=== PATIENT | female | born 1955 | race Caucasian/White ===

== ENCOUNTER → 2017-04-09 | Emergency (ER) | payer MEDICARE, OTHER ==
[~2017-04-09] VITALS: Ht 165.1 cm; Wt 96.1 kg
[2017-04-09 13:46] VITALS: BP 116/81
== END | disposition home or self-care (01) ==
LOC: ER 13:35
DX: Z02.89 Encounter for other administrative examinations (principal); I25.10 Atherosclerotic heart disease of native coronary artery without angina pectoris; I10 Essential (primary) hypertension; G89.29 Other chronic pain; Z88.0 Allergy status to penicillin; Z88.1 Allergy status to other antibiotic agents; Z88.8 Allergy status to other drugs, medicaments and biological substances
CPT/HCPCS: 99281

== ENCOUNTER 2019-01-01 17:57 | Emergency (ER) | payer MEDICARE ==
[~2019-01-01] VITALS: Ht 165.1 cm; Wt 100.0 kg
[2019-01-01 18:12] VITALS: BP 130/89
== END 2019-01-01 21:53 | disposition left against medical advice (07) ==
LOC: ER 17:58
DX: R11.10 Vomiting, unspecified (principal); R19.7 Diarrhea, unspecified; Z53.21 Procedure and treatment not carried out due to patient leaving prior to being seen by health care provider

== ENCOUNTER 2019-03-03 11:04 | Inpatient (IN) | payer MEDICARE, OTHER ==
[~2019-03-03] VITALS: Ht 165.1 cm; Wt 97.0 kg
[2019-03-03] MEDS ORDERED: LORazepam 2 mg/ml vial IV ONE (11:40)
[2019-03-03] MEDS ORDERED: magnesium 2GM in 50ml NS 50 ML IV ONE (11:40)
[2019-03-03] MEDS ORDERED: normal saline 1000ML IV soln IVB ONE (11:40)
[2019-03-03] MEDS ORDERED: potassium Cl 20 mEq SR tablet PO STA (11:40)
--- NOTE | 2019-03-03 12:47 | NUR ---
PT TO CT VIA [facility].
[2019-03-03 12:50] LABS: BASOPHILS # (AUTO) 0.1 X10'3 (0-0.2); BASOPHILS % (AUTO) 0.5 % (0-1); EOSINOPHILS % (AUTO) 0.3 % (0-6); HEMOGLOBIN 14.8 g/dl (12.0-16.0); LYMPHOCYTES # (AUTO) 1.6 X10'3 (1.1-4.8); MEAN CORPUSCULAR HEMOGLOBIN 31.7 PG (27.0-31.0); MEAN CORPUSCULAR HGB CONC 34.5 g/dL (33.0-36.5); MEAN CORPUSCULAR VOLUME 91.8 FL (78-98); MEAN PLATELET VOLUME 7.8 FL (7.4-10.4); MONOCYTES # (AUTO) 0.7 X10'3 (0-0.9); NEUTROPHILS # (AUTO) 11.1 X10'3 (1.8-7.7); NEUTROPHILS % (AUTO) 82.2 % (42-75); PLATELET COUNT 316 X10'3 (140-440); RED BLOOD COUNT 4.68 X10'6 (4.20-5.60); RED CELL DISTRIBUTION WIDTH 14.3 % (11.5-14.5); WHITE BLOOD COUNT 13.5 X10'3 (4.5-11.0)
[2019-03-03 13:07] LABS: ALANINE AMINOTRANSFERASE 20 U/L (12-78); ALKALINE PHOSPHATASE 81 IU/L (46-116); ANION GAP 8 (8-16); ASPARTATE AMINO TRANSFERASE 20 U/L (10-37); BILIRUBIN,TOTAL 0.9 MG/DL (0.1-1.0); BLOOD UREA NITROGEN 13 MG/DL (7-18); BUN/CREATININE RATIO 12.4 (6.6-38.0); CALCIUM 9.1 MG/DL (8.5-10.1); CHLORIDE 94 MMOL/L (99-107); CREATININE 1.05 MG/DL (0.40-0.90); GLUCOSE 117 MG/DL (70-104); POTASSIUM 3.4 MMOL/L (3.5-5.1); SODIUM 133 MMOL/L (135-145); TOTAL CARBON DIOXIDE 30.7 MMOL/L (24-32); TOTAL PROTEIN 7.9 G/DL (6.4-8.2); eGFR 53 ML/MIN
[2019-03-03 13:10] LABS: ETHANOL < 0.010 GM/DL (0.0-0.010); TROPONIN I < 0.04 NG/ML (0.0-0.05)
[2019-03-03] MEDS ORDERED: normal saline 1000ml 1,000 ML IV ONE (13:40)
[2019-03-03] MEDS ORDERED: folic acid 1mg/0.2ml inj IV ONE (13:40)
[2019-03-03] MEDS ORDERED: thiamine 100mg/ml 2ml inj. IV ONE (13:40)
[2019-03-03] MEDS ORDERED: potassium CL 10mEq/100ml bag 100 ML IV PRN ×2 (13:55)
[2019-03-03] MEDS ORDERED: thiamine inj. 100 MG in normal saline 100ml IV soln 100 ML IV ONE (13:55)
[2019-03-03] MEDS ORDERED: NORMAL SALINE IV SCH (13:55)
[2019-03-03] MEDS ORDERED: haloperidol lactate 5mg/ml inj IM PRN (13:55)
[2019-03-03] MEDS ORDERED: mag hydrox/Alum hydrox/simeth 30ml oral suspension PO PRN (13:55)
[2019-03-03] MEDS ORDERED: FOLIC ACID IV SCH (13:55)
[2019-03-03] MEDS ORDERED: magnesium 2GM in 50ml NS 50 ML IV PRN (13:55)
[2019-03-03] MEDS ORDERED: magnesium Cl slow-release 64mg tablet PO PRN (13:55)
[2019-03-03] MEDS ORDERED: acetaminophen 325mg tablet PO PRN ×2 (13:55)
[2019-03-03] MEDS ORDERED: potassium Cl 20 mEq SR tablet PO PRN ×2 (13:55)
[2019-03-03] MEDS ORDERED: magnesium 4gm in 100ml NS 100 ML IV PRN (13:55)
[2019-03-03] MEDS ORDERED: haloperidol 5mg tablet PO PRN (13:55)
[2019-03-03] MEDS ORDERED: magnesium hydroxide 30ml (MOM) UD suspension PO PRN (13:55)
[2019-03-03] MEDS ORDERED: morphine 2 MG/ML inj. syringe IV PRN (13:55)
[2019-03-03] MEDS ORDERED: THIAMINE IV SCH (13:55)
[2019-03-03] MEDS ORDERED: ondansetron/PF 4mg/2ml inj IV PRN (13:55)
[2019-03-03 14:02] LABS: CLARITY,URINE CLEAR (Clear); COLOR,URINE YELLOW (Yellow); GLUCOSE, URINE NEGATIVE (Neg); KETONES,URINE 15 mg/dl (Neg); LEUKOCYTE ESTERASE ,URINE NEGATIVE (Neg); NITRITES, URINE NEGATIVE (Neg); OCCULT BLOOD,URINE TRACE-LYSED (Neg); PH,URINE 6.5 (4.8-8.0); PROTEIN,URINE NEGATIVE (Neg); UROBILINOGEN,URINE 0.2 E.U/dL (0.2-1.0)
[2019-03-03 14:04] LABS: UA COLLECTION TYPE NON-SPECIFIED
[2019-03-03 14:07] LABS: SQUAMOUS EPITHELIAL CELL,UR MODERATE /LPF (FEW)
[2019-03-03 14:08] LABS: BACTERIA,URINE 4+ /HPF (Neg); RBC,URINE 0-2 /HPF (0-2); WBC,URINE 0-4 /HPF (0-4)
[2019-03-03 14:09] LABS: WBC CLUMPS,URINE FEW /HPF (NEGATIVE)
[2019-03-03 14:15] LABS: URINE AMPHETAMINE SCREEN NEGATIVE (Neg); URINE BARBITUATE SCREEN NEGATIVE (Neg); URINE BENZODIAZEPINES SCREEN NEGATIVE (Neg); URINE CANNABINOID SCREEN NEGATIVE (Neg); URINE COCAINE SCREEN NEGATIVE (Neg); URINE METHADONE SCREEN NEGATIVE (Neg); URINE OPIATE SCREEN POSITIVE (Neg); URINE PHENCYCLIDINE SCREEN NEGATIVE (Neg)
[2019-03-03] MEDS ORDERED: thiamine inj. 100 MG, folic acid inj. 2 MG in normal saline 100ml IV soln 100 ML IV SCH (14:16)
[2019-03-03] MEDS ORDERED: METF-438 PO (14:46)
[2019-03-03] MEDS ORDERED: DULO30CA52 PO (14:46)
[2019-03-03] MEDS ORDERED: ONDA8TAB13 PO (14:46)
[2019-03-03] MEDS ORDERED: FURO20TA4 PO (14:46)
[2019-03-03] MEDS ORDERED: CLON0.1T2 PO (14:47)
[2019-03-03] MEDS: MVI, adult No.4 with vit. K 10 ML in dextrose 5% water 500ml 500 ML IV SCH ×2 (14:50)
[2019-03-03] MEDS ORDERED: MESSAGE TO PHARMACY PO ONE (17:05)
[2019-03-03] MEDS ORDERED: dextrose 50%-water 50ml dispensing syringe IV PRN ×2 (17:05)
[2019-03-03] MEDS ORDERED: dextrose ORAL solution 15 GM/59 ML bottle PO PRN ×2 (17:05)
[2019-03-03] MEDS ORDERED: insulin Lispro (HumaLOG) vial - multi-dose SQ SCH (17:05)
[2019-03-03] MEDS ORDERED: glucagon, human recombinant 1mg kit SUBCUT PRN (17:05)
[2019-03-03] MEDS: ondansetron 4mg rapidly disintigrating tab PO SCH ×2 (17:55→23:33)
[2019-03-03 18:00] VITALS: BP 145/79
--- NOTE | 2019-03-03 18:24 | NUR ---
Problems reprioritized. Patient report given, questions answered & plan of care reviewed with LINDA Brice.
--- NOTE | 2019-03-03 19:03 | NUR ---
Patient in room [facility]. I have received report from LINDA Guan and had the opportunity to ask questions and assume patient care. Addendum: 03/03/19 at 1904 by Bella Jackson RN Amended: Links added.
[2019-03-03] MEDS: nystatin 500,000 unit/5ML UD oral suspension PO SCH (20:07)
[2019-03-03] MEDS: morphine 2 MG/ML inj. syringe IV PRN (20:08)
[2019-03-03] MEDS: insulin glargine (Lantus) pen - multi-dose SQ SCH (21:00)
[2019-03-03] MEDS: LORazepam 2 mg/ml vial IV PRN (22:18)
[2019-03-04] VITALS: BP 147/67
[2019-03-04] MEDS: morphine 2 MG/ML inj. syringe IV PRN ×2 (00:20→07:21)
[2019-03-04] MEDS: LORazepam 2 mg/ml vial IV PRN ×2 (02:14→05:14)
[2019-03-04] MEDS: HYDROcodone/acetaminophen 5mg/325mg tablet PO PRN ×2 (02:52→14:01)
[2019-03-04 05:04] LABS: BASOPHILS % (AUTO) 0.2 % (0-1); EOSINOPHILS % (AUTO) 0.5 % (0-6); HEMATOCRIT 37.8 % (35.0-45.0); HEMOGLOBIN 12.8 g/dl (12.0-16.0); LYMPHOCYTES # (AUTO) 1.4 X10'3 (1.1-4.8); LYMPHOCYTES % (AUTO) 14.4 % (21-51); MEAN CORPUSCULAR HEMOGLOBIN 31.7 PG (27.0-31.0); MEAN CORPUSCULAR HGB CONC 33.9 g/dL (33.0-36.5); MEAN CORPUSCULAR VOLUME 93.6 FL (78-98); MEAN PLATELET VOLUME 8.3 FL (7.4-10.4); MONOCYTES # (AUTO) 0.5 X10'3 (0-0.9); MONOCYTES % (AUTO) 5.4 % (2-12); NEUTROPHILS # (AUTO) 7.4 X10'3 (1.8-7.7); NEUTROPHILS % (AUTO) 79.5 % (42-75); PLATELET COUNT 253 X10'3 (140-440); RED BLOOD COUNT 4.04 X10'6 (4.20-5.60); RED CELL DISTRIBUTION WIDTH 14.4 % (11.5-14.5); WHITE BLOOD COUNT 9.4 X10'3 (4.5-11.0)
[2019-03-04 05:15] LABS: ALBUMIN 2.8 G/DL (3.4-5.0); ANION GAP 6 (8-16); BLOOD UREA NITROGEN 11 MG/DL (7-18); BUN/CREATININE RATIO 8.3 (6.6-38.0); CALCIUM 8.3 MG/DL (8.5-10.1); CHLORIDE 105 MMOL/L (99-107); CREATININE 1.32 MG/DL (0.40-0.90); GLUCOSE 130 MG/DL (70-104); MAGNESIUM 2.4 MG/DL (1.5-2.4); PHOSPHORUS 3.2 MG/DL (2.3-4.5); POTASSIUM 3.7 MMOL/L (3.5-5.1); SODIUM 139 MMOL/L (135-145); TOTAL CARBON DIOXIDE 28.1 MMOL/L (24-32); eGFR 41 ML/MIN
--- NOTE | 2019-03-04 06:30 | NUR ---
Patient in room [facility] 356. I have received report from Bella MCKEON and had the opportunity to ask questions and assume patient care.
[2019-03-04] MEDS: furosemide 20MG tablet PO SCH (07:22)
[2019-03-04] MEDS: duloxetine 30mg CAPSULE.DR PO SCH (07:22)
[2019-03-04] MEDS: ondansetron 4mg rapidly disintigrating tab PO SCH ×3 (07:23→23:26)
[2019-03-04 07:33] VITALS: BP 150/87
[2019-03-04] MEDS ORDERED: thiamine inj. 100 MG, folic acid inj. 2 MG in normal saline 100ml IV soln 100 ML IV SCH (08:00)
[2019-03-04] MEDS: K and/or MAG REPLACEMENT MC SCH (08:00)
[2019-03-04] MEDS ORDERED: enoxaparin 40mg/0.4ml syringe SQ SCH (08:00)
[2019-03-04] MEDS: nystatin 500,000 unit/5ML UD oral suspension PO SCH ×3 (08:05→21:00)
[2019-03-04 11:00] VITALS: BP 143/88
[2019-03-04] MEDS: LORazepam 1 MG tablet PO PRN ×2 (13:38→20:59)
[2019-03-04] MEDS: MVI, adult No.4 with vit. K 10 ML in dextrose 5% water 500ml 500 ML IV SCH ×2 (14:02)
--- NOTE | 2019-03-04 16:07 | NUR ---
Spoke with Copper Miner and patient packet is submitted to notify proper agencies about the patient having a seizure.
[2019-03-04 18:15] VITALS: BP 158/97
--- NOTE | 2019-03-04 18:34 | NUR ---
Problems reprioritized. Patient report given, questions answered & plan of care reviewed with Tatiana MCKEON.
[2019-03-04] MEDS: insulin glargine (Lantus) pen - multi-dose SQ SCH (21:00)
[2019-03-04] MEDS: cloNIDine 0.1 mg tablet PO PRN (23:27)
[2019-03-05 00:15] VITALS: BP 158/79
[2019-03-05 04:57] LABS: BASOPHILS # (AUTO) 0.1 X10'3 (0-0.2); BASOPHILS % (AUTO) 0.8 % (0-1); EOSINOPHILS # (AUTO) 0.2 X10'3 (0-0.9); EOSINOPHILS % (AUTO) 2.7 % (0-6); HEMATOCRIT 34.5 % (35.0-45.0); LYMPHOCYTES # (AUTO) 2.2 X10'3 (1.1-4.8); MEAN CORPUSCULAR HEMOGLOBIN 32.2 PG (27.0-31.0); MEAN CORPUSCULAR HGB CONC 34.7 g/dL (33.0-36.5); MEAN CORPUSCULAR VOLUME 92.8 FL (78-98); MEAN PLATELET VOLUME 8.4 FL (7.4-10.4); MONOCYTES # (AUTO) 0.6 X10'3 (0-0.9); NEUTROPHILS # (AUTO) 4.2 X10'3 (1.8-7.7); NEUTROPHILS % (AUTO) 58.5 % (42-75); PLATELET COUNT 248 X10'3 (140-440); RED BLOOD COUNT 3.72 X10'6 (4.20-5.60); RED CELL DISTRIBUTION WIDTH 14.4 % (11.5-14.5); WHITE BLOOD COUNT 7.2 X10'3 (4.5-11.0)
[2019-03-05 05:16] LABS: ALBUMIN 2.8 G/DL (3.4-5.0); ANION GAP 7 (8-16); CALCIUM 8.4 MG/DL (8.5-10.1); CHLORIDE 104 MMOL/L (99-107); CREATININE 0.98 MG/DL (0.40-0.90); GLUCOSE 112 MG/DL (70-104); MAGNESIUM 2.1 MG/DL (1.5-2.4); PHOSPHORUS 3.8 MG/DL (2.3-4.5); POTASSIUM 3.6 MMOL/L (3.5-5.1); SODIUM 141 MMOL/L (135-145); TOTAL CARBON DIOXIDE 30.4 MMOL/L (24-32); eGFR 58 ML/MIN
[2019-03-05 05:18] LABS: BLOOD UREA NITROGEN 10 MG/DL (7-18); BUN/CREATININE RATIO 10.2 (6.6-38.0)
[2019-03-05 06:30] VITALS: BP 160/85
--- NOTE | 2019-03-05 06:43 | NUR ---
Problems reprioritized. Patient report given, questions answered & plan of care reviewed with LINDA Barroso.
--- NOTE | 2019-03-05 06:45 | NUR ---
Patient in room [facility] 356. I have received report from LINDA Simpson and had the opportunity to ask questions and assume patient care.
[2019-03-05] MEDS: K and/or MAG REPLACEMENT MC SCH (07:16)
[2019-03-05] MEDS: ondansetron 4mg rapidly disintigrating tab PO SCH (07:41)
[2019-03-05] MEDS: nystatin 500,000 unit/5ML UD oral suspension PO SCH ×2 (07:41→13:27)
[2019-03-05] MEDS: duloxetine 30mg CAPSULE.DR PO SCH (07:43)
[2019-03-05] MEDS: furosemide 20MG tablet PO SCH (07:43)
[2019-03-05] MEDS ORDERED: folic acid 1mg tablet PO SCH (08:00)
[2019-03-05] MEDS ORDERED: multivitamins, therapeutics tablet PO SCH (08:00)
[2019-03-05] MEDS ORDERED: thiamine 100mg tablet PO SCH (08:00)
[2019-03-05] MEDS: cloNIDine 0.1 mg tablet PO PRN (09:03)
[2019-03-05] MEDS ORDERED: metoprolol tartrate 50mg tablet PO ONE (10:45)
[2019-03-05] MEDS: HYDROcodone/acetaminophen 5mg/325mg tablet PO PRN (10:52)
[2019-03-05 11:00] VITALS: BP 166/100
[2019-03-05] MEDS ORDERED: ATI1T PO (12:42)
[2019-03-05] MEDS ORDERED: NYST1000 PO (13:47)
--- NOTE | 2019-03-05 13:50 | NUR ---
DC inst provided to pt. IV previously DC'd. All belongings sent w/pt. Pt ambulated to front [facility].
== END 2019-03-05 13:53 | disposition home or self-care (01) | DRG 100 ==
LOC: ER 11:04 → ED HOLD 13:40 → SUR 3N 16:59
PROVIDERS: ADMIT Hospitalist; ATTEND Hospitalist
DX: G40.89 Other seizures (principal); N17.0 Acute kidney failure with tubular necrosis; F10.231 Alcohol dependence with withdrawal delirium; E87.6 Hypokalemia; Z88.1 Allergy status to other antibiotic agents; Z88.0 Allergy status to penicillin; Z88.8 Allergy status to other drugs, medicaments and biological substances; I25.10 Atherosclerotic heart disease of native coronary artery without angina pectoris; I10 Essential (primary) hypertension; G89.29 Other chronic pain; M54.9 Dorsalgia, unspecified; E11.9 Type 2 diabetes mellitus without complications; F41.9 Anxiety disorder, unspecified
CPT/HCPCS: 36415; 70450; 76937; 80048; 80053; 80305; 80320; 81001; 82140; 82948; 83036; 83735; 84100; 84484; 85025; 85610; 87077; 87081; 87088; 87186; 93005; 96374; 99291; G0378; J1650; J1815; J2060; J2270; J3411; J3475; J3490; J7030; J7060

== ENCOUNTER 2019-03-25 15:09 | Outpatient (CLI) | payer MEDICARE, OTHER ==
[~2019-03-25 15:09] MED LIST: ATI1T PO; CLON0.1T2 PO; DULO30CA52 PO; FURO20TA4 PO; METF-438 PO; ONDA8TAB13 PO
== END 2019-03-25 23:59 | disposition home or self-care (01) ==
LOC: RAD 15:09
PROVIDERS: ATTEND Family Medicine
DX: M16.0 Bilateral primary osteoarthritis of hip (principal)
CPT/HCPCS: 73503

== ENCOUNTER 2019-07-03 01:41 | Emergency (ER) | payer MEDICARE, OTHER ==
[~2019-07-03] VITALS: Ht 165.1 cm; Wt 88.2 kg
[~2019-07-03 01:41] MED LIST changes: +CLON-529 PO; +DULO-31 PO; +FURO-150 PO; +LOSA100T57 PO; +METF500T PO; +METO-411 PO; +MULT-1179 PO; +ONDA4TAB6 PO; +PANT40TA4 PO; +QUET25TA34 PO; +folic acid tablet PO; +thiamine tablet PO
--- NOTE | 2019-07-03 01:55 | NUR ---
Pt. placed in room two by and CRN. Able to ambulate independenty accompanied by tech. Mask in place per rr safety precautions.
--- NOTE | 2019-07-03 02:11 | NUR ---
DR PRINGLE AT BEDSIDE. SHE REPORTS SHE WAS JUST DISCHARGED FROM [facility]. SHE REPORTS NAUSEA, VOMITING, DIARRHEA, SORE THROAT AND GARVEY. SHE STATES SHE IS VERY DIFFICULT IV PLACEMENT AND LAB DRAW AND THAT SHE HAD A PICC LINE WHEN SHE WAS HERE. DISCHARGEED JUST YESTERDAY.
[2019-07-03] MEDS ORDERED: LORazepam 2 mg/ml vial IM ONE (02:15)
[2019-07-03] MEDS ORDERED: haloperidol lactate 5mg/ml inj IM ONE (02:15)
[2019-07-03] MEDS ORDERED: ondansetron 4mg rapidly disintigrating tab PO ONE (02:15)
[2019-07-03] MEDS ORDERED: PROM25TA14 PO (02:50)
[2019-07-03] MEDS ORDERED: ONDA4TAB6 PO (02:50)
--- NOTE | 2019-07-03 02:52 | NUR ---
PROVIDED BSC. PT VOIDING 100 CC'S. GIVEN ZOFRAN, HALDOL IM AND ATIVAN IM. PT NEEDS TO DO PO CHALLENGE THEN OK TO DC.
[2019-07-03 03:05] VITALS: BP 153/89
--- NOTE | 2019-07-03 03:08 | NUR ---
PT ABLE TO TOLERATE ONE CRACKER SOME BITES OF JELLO AND SIPS O JUICE. HEADACHE NOW 7 AND NAUSEA AND BELLY ACHE STARTING TO SUBSIDE.
--- NOTE | 2019-07-03 03:30 | NUR ---
PTS SON, RAMON, CALLED AND HER EXHUSBAND WILL BE HERE TO PICK HER UP IN ABOUT 15 MIN. PT NOW IN LOBBY IN . SHE WAS STILL FEELING WEAK AND TIRED FROM THE MEDS.
== END 2019-07-03 03:32 | disposition home or self-care (01) ==
LOC: ER 01:41
DX: R19.7 Diarrhea, unspecified (principal); R11.2 Nausea with vomiting, unspecified; I25.10 Atherosclerotic heart disease of native coronary artery without angina pectoris; I12.9 Hypertensive chronic kidney disease with stage 1 through stage 4 chronic kidney disease, or unspecified chronic kidney disease; E11.22 Type 2 diabetes mellitus with diabetic chronic kidney disease; N18.9 Chronic kidney disease, unspecified; G89.29 Other chronic pain; Z98.890 Other specified postprocedural states; Z88.0 Allergy status to penicillin; Z88.1 Allergy status to other antibiotic agents; Z91.048 Other nonmedicinal substance allergy status; Z88.8 Allergy status to other drugs, medicaments and biological substances; Z79.899 Other long term (current) drug therapy
CPT/HCPCS: 96372; 99284; J1630; J2060

== ENCOUNTER 2019-07-19 08:29 | Emergency (ER) | payer MEDICARE, OTHER ==
[~2019-07-19] VITALS: Ht 167.6 cm; Wt 103.6 kg
[~2019-07-19 08:29] MED LIST changes: +PROM25TA14 PO
[2019-07-19] MEDS ORDERED: normal saline 1000ML IV soln IVB ONE (09:40)
[2019-07-19] MEDS ORDERED: loperamide 2mg capsule PO ONE (09:40)
[2019-07-19 09:48] LABS: BASOPHILS # (AUTO) 0.1 X10'3 (0-0.2); BASOPHILS % (AUTO) 1.5 % (0-1); EOSINOPHILS # (AUTO) 0.3 X10'3 (0-0.9); EOSINOPHILS % (AUTO) 5.1 % (0-6); HEMATOCRIT 43.3 % (35.0-45.0); HEMOGLOBIN 14.4 g/dl (12.0-16.0); LYMPHOCYTES % (AUTO) 28.9 % (21-51); MEAN CORPUSCULAR HEMOGLOBIN 30.8 PG (27.0-31.0); MEAN CORPUSCULAR HGB CONC 33.3 g/dL (33.0-36.5); MEAN CORPUSCULAR VOLUME 92.5 FL (78-98); MEAN PLATELET VOLUME 9.1 FL (7.4-10.4); MONOCYTES # (AUTO) 0.4 X10'3 (0-0.9); MONOCYTES % (AUTO) 5.5 % (2-12); PLATELET COUNT 280 X10'3 (140-440); RED BLOOD COUNT 4.68 X10'6 (4.20-5.60); RED CELL DISTRIBUTION WIDTH 14.8 % (11.5-14.5); WHITE BLOOD COUNT 6.8 X10'3 (4.5-11.0)
[2019-07-19 09:49] LABS: CLARITY,URINE SLIGHTLY CLOUDY (Clear); COLOR,URINE STRAW (Yellow); GLUCOSE, URINE NEGATIVE (Neg); KETONES,URINE NEGATIVE (Neg); LEUKOCYTE ESTERASE ,URINE NEGATIVE (Neg); NITRITES, URINE NEGATIVE (Neg); OCCULT BLOOD,URINE NEGATIVE (Neg); PH,URINE 5.5 (4.8-8.0); PROTEIN,URINE NEGATIVE (Neg); UROBILINOGEN,URINE 0.2 E.U/dL (0.2-1.0)
[2019-07-19 09:55] LABS: UA COLLECTION TYPE VOIDED
[2019-07-19 09:56] LABS: BACTERIA,URINE 1+ /HPF (Neg); MUCUS STRANDS NONE SEEN /LPF (Neg); RBC,URINE NONE SEEN /HPF (0-2); SQUAMOUS EPITHELIAL CELL,UR FEW /LPF (FEW); WBC,URINE 0-4 /HPF (0-4)
[2019-07-19 10:06] LABS: URINE AMPHETAMINE SCREEN NEGATIVE (Neg); URINE BARBITUATE SCREEN NEGATIVE (Neg); URINE BENZODIAZEPINES SCREEN NEGATIVE (Neg); URINE CANNABINOID SCREEN NEGATIVE (Neg); URINE COCAINE SCREEN NEGATIVE (Neg); URINE METHADONE SCREEN NEGATIVE (Neg); URINE OPIATE SCREEN POSITIVE (Neg); URINE PHENCYCLIDINE SCREEN NEGATIVE (Neg)
[2019-07-19 10:06] LABS: ALANINE AMINOTRANSFERASE 31 U/L (12-78); ALBUMIN 3.4 G/DL (3.4-5.0); ALBUMIN/GLOBULIN RATIO 0.8 (1.1-1.5); ALKALINE PHOSPHATASE 120 IU/L (46-116); ANION GAP 5 (8-16); ASPARTATE AMINO TRANSFERASE 21 U/L (10-37); BILIRUBIN,TOTAL 0.4 MG/DL (0.1-1.0); BLOOD UREA NITROGEN 22 MG/DL (7-18); BUN/CREATININE RATIO 16.5 (6.6-38.0); CALCIUM 8.9 MG/DL (8.5-10.1); CHLORIDE 101 MMOL/L (99-107); CREATININE 1.33 MG/DL (0.40-0.90); ETHANOL < 0.010 GM/DL (0.0-0.010); GLUCOSE 143 MG/DL (70-104); MAGNESIUM 1.8 MG/DL (1.5-2.4); POTASSIUM 3.4 MMOL/L (3.5-5.1); SODIUM 141 MMOL/L (135-145); TOTAL CARBON DIOXIDE 34.6 MMOL/L (24-32); TOTAL PROTEIN 7.8 G/DL (6.4-8.2); eGFR 40 ML/MIN
[2019-07-19] MEDS ORDERED: LOPE2TAB25 PO (10:42)
[2019-07-19] MEDS ORDERED: ONDA4TAB6 PO (10:42)
[2019-07-19 10:47] VITALS: BP 184/111
--- NOTE | 2019-07-19 10:48 | NUR ---
pt laying down flat breathing even and unlabored stating 96% on room air
== END 2019-07-19 11:59 | disposition home or self-care (01) ==
LOC: ER 08:30
DX: R19.7 Diarrhea, unspecified (principal); R11.0 Nausea; R51 Headache; I25.10 Atherosclerotic heart disease of native coronary artery without angina pectoris; I12.9 Hypertensive chronic kidney disease with stage 1 through stage 4 chronic kidney disease, or unspecified chronic kidney disease; E11.22 Type 2 diabetes mellitus with diabetic chronic kidney disease; N18.9 Chronic kidney disease, unspecified; G89.29 Other chronic pain; Z98.890 Other specified postprocedural states; Z88.0 Allergy status to penicillin; Z88.8 Allergy status to other drugs, medicaments and biological substances; Z91.048 Other nonmedicinal substance allergy status
CPT/HCPCS: 36415; 71045; 80053; 80305; 80320; 81001; 83735; 85025; 96360; 99284; J7030

== ENCOUNTER 2019-09-10 12:18 | Emergency (ER) | payer MEDICARE, OTHER ==
[~2019-09-10] VITALS: Ht 165.1 cm; Wt 88.6 kg
[~2019-09-10 12:18] MED LIST changes: +CEFD300C3 PO; -CLON-529 PO; -CLON0.1T2 PO; -DULO-31 PO; -FURO-150 PO; -FURO20TA4 PO; +HYDR-4069 PO; +LINE600T14 PO; +LISI10TA4 PO; +LOPE2CAP PO; -METF500T PO; -ONDA4TAB6 PO
[2019-09-10] MEDS ORDERED: metoclopramide 5 mg/ml inj IV ONE (12:35)
[2019-09-10] MEDS ORDERED: diphenhydrAMINE 50 mg/ml inj IV ONE (12:35)
[2019-09-10] MEDS ORDERED: morphine 2 MG/ML inj. syringe IV ONE (12:35)
[2019-09-10] MEDS ORDERED: normal saline 1000ML IV soln IVB ONE (12:35)
[2019-09-10 12:55] LABS: BASOPHILS # (AUTO) 0.1 X10'3 (0-0.2); EOSINOPHILS # (AUTO) 0.2 X10'3 (0-0.9); EOSINOPHILS % (AUTO) 2.9 % (0-6); HEMATOCRIT 37.7 % (35.0-45.0); HEMOGLOBIN 12.3 g/dl (12.0-16.0); LYMPHOCYTES # (AUTO) 2.2 X10'3 (1.1-4.8); LYMPHOCYTES % (AUTO) 34.1 % (21-51); MEAN CORPUSCULAR HEMOGLOBIN 27.7 PG (27.0-31.0); MEAN CORPUSCULAR HGB CONC 32.6 g/dL (33.0-36.5); MEAN CORPUSCULAR VOLUME 85.1 FL (78-98); MEAN PLATELET VOLUME 9.1 FL (7.4-10.4); MONOCYTES # (AUTO) 0.5 X10'3 (0-0.9); NEUTROPHILS # (AUTO) 3.4 X10'3 (1.8-7.7); PLATELET COUNT 318 X10'3 (140-440); RED BLOOD COUNT 4.43 X10'6 (4.20-5.60); RED CELL DISTRIBUTION WIDTH 16.5 % (11.5-14.5); WHITE BLOOD COUNT 6.4 X10'3 (4.5-11.0)
[2019-09-10 13:12] LABS: ALANINE AMINOTRANSFERASE 20 U/L (12-78); ALBUMIN 3.2 G/DL (3.4-5.0); ALBUMIN/GLOBULIN RATIO 0.7 (1.1-1.5); ALKALINE PHOSPHATASE 74 IU/L (46-116); ANION GAP 10 (8-16); ASPARTATE AMINO TRANSFERASE 40 U/L (10-37); BILIRUBIN,TOTAL 0.4 MG/DL (0.1-1.0); BLOOD UREA NITROGEN 9 MG/DL (7-18); BUN/CREATININE RATIO 7.3 (6.6-38.0); CALCIUM 9.1 MG/DL (8.5-10.1); CHLORIDE 104 MMOL/L (99-107); CREATININE 1.24 MG/DL (0.40-0.90); GLUCOSE 122 MG/DL (70-104); LIPASE 54 U/L (73-393); POTASSIUM 3.4 MMOL/L (3.5-5.1); SODIUM 143 MMOL/L (135-145); TOTAL PROTEIN 7.5 G/DL (6.4-8.2); eGFR 44 ML/MIN
[2019-09-10 14:19] VITALS: BP 186/98
== END 2019-09-10 14:23 | disposition home or self-care (01) ==
LOC: ER 12:18
DX: R11.2 Nausea with vomiting, unspecified (principal); R10.13 Epigastric pain; R19.7 Diarrhea, unspecified; I25.10 Atherosclerotic heart disease of native coronary artery without angina pectoris; I12.9 Hypertensive chronic kidney disease with stage 1 through stage 4 chronic kidney disease, or unspecified chronic kidney disease; E11.22 Type 2 diabetes mellitus with diabetic chronic kidney disease; N18.9 Chronic kidney disease, unspecified; G89.29 Other chronic pain; Z86.69 Personal history of other diseases of the nervous system and sense organs; Z98.890 Other specified postprocedural states; Z72.89 Other problems related to lifestyle; Z88.1 Allergy status to other antibiotic agents; Z88.5 Allergy status to narcotic agent; Z88.8 Allergy status to other drugs, medicaments and biological substances; Z79.2 Long term (current) use of antibiotics; Z79.899 Other long term (current) drug therapy
CPT/HCPCS: 36415; 80053; 83605; 83690; 85025; 87045; 87046; 96361; 96374; 96375; 99284; J1200; J2270; J2765; J7030

== ENCOUNTER 2021-02-13 23:20 | Emergency (ER) | payer MEDICARE, OTHER ==
[~2021-02-13] VITALS: Ht 165.1 cm; Wt 86.4 kg
[~2021-02-13 23:20] MED LIST changes: -ATI1T PO; -CEFD300C3 PO; +CLON-369 PO; +CLON0.1T2 PO; +DIPH1TAB28 PO; +FURO20TA4 PO; -HYDR-4069 PO; -LINE600T14 PO; -LISI10TA4 PO; -LOPE2CAP PO; -MULT-1179 PO; +PANT-47 PO; -PANT40TA4 PO; -PROM25TA14 PO; -QUET25TA34 PO; +QUET25TA36 PO; -folic acid tablet PO; -thiamine tablet PO
[2021-02-14 00:38] LABS: BASOPHILS % (AUTO) 0.2 % (0-1); EOSINOPHILS # (AUTO) 0.2 X10'3 (0-0.9); EOSINOPHILS % (AUTO) 3.2 % (0-6); HEMATOCRIT 32.7 % (35.0-45.0); HEMOGLOBIN 10.7 g/dl (12.0-16.0); LYMPHOCYTES # (AUTO) 1.8 X10'3 (1.1-4.8); LYMPHOCYTES % (AUTO) 26.3 % (21-51); MEAN CORPUSCULAR HEMOGLOBIN 23.5 PG (27.0-31.0); MEAN CORPUSCULAR HGB CONC 32.7 g/dL (33.0-36.5); MEAN CORPUSCULAR VOLUME 71.9 FL (78-98); MEAN PLATELET VOLUME 8.2 FL (7.4-10.4); MONOCYTES # (AUTO) 0.6 X10'3 (0-0.9); MONOCYTES % (AUTO) 8.7 % (2-12); NEUTROPHILS # (AUTO) 4.2 X10'3 (1.8-7.7); NEUTROPHILS % (AUTO) 61.6 % (42-75); PLATELET COUNT 329 X10'3 (140-440); RED BLOOD COUNT 4.54 X10'6 (4.20-5.60); RED CELL DISTRIBUTION WIDTH 19.5 % (11.5-14.5); WHITE BLOOD COUNT 6.8 X10'3 (4.5-11.0)
[2021-02-14 00:46] LABS: ALANINE AMINOTRANSFERASE 16 U/L (12-78); ALBUMIN 3.7 G/DL (3.4-5.0); ALBUMIN/GLOBULIN RATIO 0.8 (1.1-1.5); ALKALINE PHOSPHATASE 121 IU/L (46-116); ANION GAP 9 (8-16); ASPARTATE AMINO TRANSFERASE 13 U/L (10-37); BILIRUBIN,TOTAL 0.6 MG/DL (0.1-1.0); BLOOD UREA NITROGEN 19 MG/DL (7-18); BUN/CREATININE RATIO 17.1 (6.6-38.0); CALCIUM 8.9 MG/DL (8.5-10.1); CHLORIDE 98 MMOL/L (99-107); CREATININE 1.11 MG/DL (0.40-0.90); GLUCOSE 144 MG/DL (70-104); SODIUM 136 MMOL/L (135-145); TOTAL CARBON DIOXIDE 29.2 MMOL/L (24-32); TOTAL PROTEIN 8.1 G/DL (6.4-8.2); eGFR 49 ML/MIN
[2021-02-14 00:58] VITALS: BP 185/108
[2021-02-14 00:59] LABS: ANISOCYTOSIS 2+; PLATELET ESTIMATE NORMAL
[2021-02-14 01:00] LABS: MICROCYTOSIS 1+
[2021-02-14] MEDS ORDERED: ondansetron 4mg rapidly disintigrating tab PO ONE (01:55)
[2021-02-14 01:57] LABS: D-DIMER 0.24 MG/L FEU (0-0.50)
== END 2021-02-14 02:52 | disposition home or self-care (01) ==
LOC: ER 23:21
DX: U07.1 COVID-19 (principal); R07.89 Other chest pain; G40.909 Epilepsy, unspecified, not intractable, without status epilepticus; I25.10 Atherosclerotic heart disease of native coronary artery without angina pectoris; I12.9 Hypertensive chronic kidney disease with stage 1 through stage 4 chronic kidney disease, or unspecified chronic kidney disease; E11.22 Type 2 diabetes mellitus with diabetic chronic kidney disease; N18.9 Chronic kidney disease, unspecified; G89.29 Other chronic pain; Z90.49 Acquired absence of other specified parts of digestive tract; Z95.5 Presence of coronary angioplasty implant and graft; Z72.89 Other problems related to lifestyle; Z88.2 Allergy status to sulfonamides; Z88.0 Allergy status to penicillin; Z91.041 Radiographic dye allergy status; Z88.8 Allergy status to other drugs, medicaments and biological substances; Z79.899 Other long term (current) drug therapy
CPT/HCPCS: 36415; 71045; 80053; 83880; 84484; 85008; 85025; 85379; 87635; 93005; 99285; C9803

== ENCOUNTER 2021-02-22 00:07 | Emergency (ER) | payer MEDICARE, OTHER ==
[~2021-02-22] VITALS: Ht 165.1 cm; Wt 86.4 kg
[2021-02-22 01:21] LABS: BASOPHILS % (AUTO) 0.1 % (0-1); EOSINOPHILS % (AUTO) 0 % (0-6); HEMATOCRIT 34.6 % (35.0-45.0); HEMOGLOBIN 11.4 g/dl (12.0-16.0); LYMPHOCYTES # (AUTO) 0.8 X10'3 (1.1-4.8); LYMPHOCYTES % (AUTO) 18.6 % (21-51); MEAN CORPUSCULAR HEMOGLOBIN 23.8 PG (27.0-31.0); MEAN CORPUSCULAR VOLUME 72.3 FL (78-98); MEAN PLATELET VOLUME 8.1 FL (7.4-10.4); MONOCYTES # (AUTO) 0.1 X10'3 (0-0.9); MONOCYTES % (AUTO) 1.7 % (2-12); NEUTROPHILS # (AUTO) 3.6 X10'3 (1.8-7.7); NEUTROPHILS % (AUTO) 79.6 % (42-75); PLATELET COUNT 362 X10'3 (140-440); RED BLOOD COUNT 4.78 X10'6 (4.20-5.60); RED CELL DISTRIBUTION WIDTH 19.6 % (11.5-14.5); WHITE BLOOD COUNT 4.6 X10'3 (4.5-11.0)
[2021-02-22 01:38] LABS: ALANINE AMINOTRANSFERASE 78 U/L (12-78); ALBUMIN 3.9 G/DL (3.4-5.0); ALBUMIN/GLOBULIN RATIO 0.9 (1.1-1.5); ALKALINE PHOSPHATASE 185 IU/L (46-116); ANION GAP 10 (8-16); ASPARTATE AMINO TRANSFERASE 44 U/L (10-37); BILIRUBIN,TOTAL 0.9 MG/DL (0.1-1.0); BLOOD UREA NITROGEN 20 MG/DL (7-18); BUN/CREATININE RATIO 17.9 (6.6-38.0); CALCIUM 9.2 MG/DL (8.5-10.1); CHLORIDE 98 MMOL/L (99-107); CREATININE 1.12 MG/DL (0.40-0.90); GLUCOSE 175 MG/DL (70-104); SODIUM 137 MMOL/L (135-145); TOTAL CARBON DIOXIDE 29.3 MMOL/L (24-32); TOTAL PROTEIN 8.3 G/DL (6.4-8.2); eGFR 49 ML/MIN
[2021-02-22 02:18] LABS: D-DIMER 0.24 MG/L FEU (0-0.50)
[2021-02-22 02:22] LABS: ANISOCYTOSIS 2+
[2021-02-22 02:23] LABS: MICROCYTOSIS 1+; PLATELET ESTIMATE NORMAL
[2021-02-22 03:23] VITALS: BP 158/92
== END 2021-02-22 03:50 | disposition home or self-care (01) ==
LOC: ER 00:09
DX: R07.89 Other chest pain (principal); R06.02 Shortness of breath; R11.0 Nausea; M54.89 Other dorsalgia; I25.10 Atherosclerotic heart disease of native coronary artery without angina pectoris; I12.9 Hypertensive chronic kidney disease with stage 1 through stage 4 chronic kidney disease, or unspecified chronic kidney disease; E11.22 Type 2 diabetes mellitus with diabetic chronic kidney disease; N18.9 Chronic kidney disease, unspecified; G89.29 Other chronic pain; Z86.69 Personal history of other diseases of the nervous system and sense organs; Z90.49 Acquired absence of other specified parts of digestive tract; Z98.890 Other specified postprocedural states; Z72.89 Other problems related to lifestyle; Z88.0 Allergy status to penicillin; Z88.1 Allergy status to other antibiotic agents; Z88.8 Allergy status to other drugs, medicaments and biological substances; Z79.899 Other long term (current) drug therapy
CPT/HCPCS: 36415; 71045; 80053; 83880; 84484; 85008; 85025; 85379; 93005; 99285

== ENCOUNTER 2021-09-13 14:15 | Emergency (ER) | payer MEDICARE, OTHER ==
[~2021-09-13] VITALS: Ht 165.1 cm; Wt 84.1 kg
[2021-09-13 15:08] LABS: BASOPHILS % (AUTO) 0.2 % (0-1); EOSINOPHILS # (AUTO) 0.1 X10'3 (0-0.9); EOSINOPHILS % (AUTO) 1.3 % (0-6); HEMATOCRIT 35.9 % (35.0-45.0); LYMPHOCYTES # (AUTO) 1.8 X10'3 (1.1-4.8); LYMPHOCYTES % (AUTO) 28.1 % (21-51); MEAN CORPUSCULAR HEMOGLOBIN 27.2 PG (27.0-31.0); MEAN CORPUSCULAR HGB CONC 33.4 g/dL (33.0-36.5); MEAN CORPUSCULAR VOLUME 81.4 FL (78-98); MEAN PLATELET VOLUME 8.5 FL (7.4-10.4); MONOCYTES # (AUTO) 0.5 X10'3 (0-0.9); NEUTROPHILS # (AUTO) 3.9 X10'3 (1.8-7.7); NEUTROPHILS % (AUTO) 62.4 % (42-75); PLATELET COUNT 216 X10'3 (140-440); RED BLOOD COUNT 4.41 X10'6 (4.20-5.60); RED CELL DISTRIBUTION WIDTH 19.9 % (11.5-14.5); WHITE BLOOD COUNT 6.3 X10'3 (4.5-11.0)
[2021-09-13 15:29] LABS: ALANINE AMINOTRANSFERASE 16 U/L (12-78); ALBUMIN 3.2 G/DL (3.4-5.0); ALBUMIN/GLOBULIN RATIO 0.9 (1.1-1.5); ALKALINE PHOSPHATASE 105 IU/L (46-116); ANION GAP 11 (8-16); ASPARTATE AMINO TRANSFERASE 12 U/L (10-37); BILIRUBIN,TOTAL 0.7 MG/DL (0.1-1.0); BLOOD UREA NITROGEN 20 MG/DL (7-18); CALCIUM 8.7 MG/DL (8.5-10.1); CHLORIDE 104 MMOL/L (99-107); CREATININE 1.66 MG/DL (0.40-0.90); GLUCOSE 143 MG/DL (70-104); SODIUM 141 MMOL/L (135-145); TOTAL CARBON DIOXIDE 25.8 MMOL/L (24-32); TOTAL PROTEIN 6.9 G/DL (6.4-8.2); eGFR 31 ML/MIN
[2021-09-13 15:31] LABS: ANISOCYTOSIS 2+; ELLIPTOCYTES FEW; PLATELET ESTIMATE NORMAL
[2021-09-13 15:33] LABS: POTASSIUM 2.9 MMOL/L (3.5-5.1)
[2021-09-13 16:00] VITALS: BP 153/109
[2021-09-13] MEDS ORDERED: normal saline 1000ML IV soln IVB ONE (16:00)
[2021-09-13 16:33] LABS: CLARITY,URINE CLEAR (Clear); COLOR,URINE YELLOW (Yellow); GLUCOSE, URINE NEGATIVE (Neg); KETONES,URINE TRACE mg/dl (Neg); LEUKOCYTE ESTERASE ,URINE TRACE (Neg); NITRITES, URINE NEGATIVE (Neg); OCCULT BLOOD,URINE NEGATIVE (Neg); PH,URINE 6.5 (4.8-8.0); PROTEIN,URINE 30 mg/dl (Neg); UROBILINOGEN,URINE 0.2 E.U/dL (0.2-1.0)
[2021-09-13 16:40] LABS: UA COLLECTION TYPE VOIDED
[2021-09-13 17:01] LABS: ETHANOL < 0.010 GM/DL (0.0-0.010)
[2021-09-13 17:08] LABS: HYALINE CASTS >30 /LPF (NEGATIVE); MUCUS STRANDS FEW /LPF (Neg); SQUAMOUS EPITHELIAL CELL,UR MANY /LPF (FEW)
[2021-09-13 17:09] LABS: BACTERIA,URINE 1+ /HPF (Neg)
== END 2021-09-13 18:39 | disposition home or self-care (01) ==
LOC: ER 14:15
DX: S92.354A Nondisplaced fracture of fifth metatarsal bone, right foot, initial encounter for closed fracture (principal); F10.129 Alcohol abuse with intoxication, unspecified; M79.671 Pain in right foot; I25.10 Atherosclerotic heart disease of native coronary artery without angina pectoris; I12.9 Hypertensive chronic kidney disease with stage 1 through stage 4 chronic kidney disease, or unspecified chronic kidney disease; E11.22 Type 2 diabetes mellitus with diabetic chronic kidney disease; N18.9 Chronic kidney disease, unspecified; G89.29 Other chronic pain; Z86.69 Personal history of other diseases of the nervous system and sense organs; Z90.49 Acquired absence of other specified parts of digestive tract; Z98.890 Other specified postprocedural states; Z72.89 Other problems related to lifestyle; Z88.0 Allergy status to penicillin; Z88.1 Allergy status to other antibiotic agents; Z88.8 Allergy status to other drugs, medicaments and biological substances; Z79.899 Other long term (current) drug therapy; W01.0XXA Fall on same level from slipping, tripping and stumbling without subsequent striking against object, initial encounter; Y93.89 Activity, other specified; Y92.89 Other specified places as the place of occurrence of the external cause; Y99.8 Other external cause status; Y90.0 Blood alcohol level of less than 20 mg/100 ml
CPT/HCPCS: 36415; 71045; 73630; 80053; 80320; 81001; 83880; 84484; 85008; 85025; 93005; 99285; J7030; L4360

== ENCOUNTER 2022-01-28 16:34 | Emergency (ER) | payer MEDICARE, OTHER ==
[~2022-01-28] VITALS: Ht 163.8 cm; Wt 93.2 kg
[2022-01-28 19:05] LABS: ALANINE AMINOTRANSFERASE 14 U/L (12-78); ALBUMIN 3.8 G/DL (3.4-5.0); ALKALINE PHOSPHATASE 108 IU/L (46-116); ANION GAP 6 (8-16); ASPARTATE AMINO TRANSFERASE 18 U/L (10-37); BILIRUBIN,TOTAL 0.5 MG/DL (0.1-1.0); BLOOD UREA NITROGEN 11 MG/DL (7-18); BUN/CREATININE RATIO 10.1 (6.6-38.0); CALCIUM 9.4 MG/DL (8.5-10.1); CHLORIDE 100 MMOL/L (99-107); CREATININE 1.09 MG/DL (0.40-0.90); GLUCOSE 137 MG/DL (70-104); POTASSIUM 4.1 MMOL/L (3.5-5.1); SODIUM 139 MMOL/L (135-145); TOTAL CARBON DIOXIDE 33.1 MMOL/L (24-32); TOTAL PROTEIN 7.8 G/DL (6.4-8.2); eGFR 50 ML/MIN
[2022-01-28 19:06] LABS: BASOPHILS % (AUTO) 0.5 % (0-1); EOSINOPHILS # (AUTO) 0.1 X10'3 (0-0.9); EOSINOPHILS % (AUTO) 0.7 % (0-6); HEMATOCRIT 40.1 % (35.0-45.0); HEMOGLOBIN 13.7 g/dl (12.0-16.0); LYMPHOCYTES # (AUTO) 1.9 X10'3 (1.1-4.8); LYMPHOCYTES % (AUTO) 27.9 % (21-51); MEAN CORPUSCULAR HEMOGLOBIN 29.9 PG (27.0-31.0); MEAN CORPUSCULAR HGB CONC 34.1 g/dL (33.0-36.5); MEAN CORPUSCULAR VOLUME 87.6 FL (78-98); MEAN PLATELET VOLUME 8.4 FL (7.4-10.4); MONOCYTES # (AUTO) 0.4 X10'3 (0-0.9); MONOCYTES % (AUTO) 5.4 % (2-12); NEUTROPHILS # (AUTO) 4.5 X10'3 (1.8-7.7); NEUTROPHILS % (AUTO) 65.5 % (42-75); PLATELET COUNT 255 X10'3 (140-440); RED BLOOD COUNT 4.58 X10'6 (4.20-5.60); WHITE BLOOD COUNT 6.9 X10'3 (4.5-11.0)
[2022-01-28] MEDS ORDERED: LORazepam 1 MG tablet PO ONE (23:00)
[2022-01-28] MEDS ORDERED: cloNIDine 0.1 mg tablet PO ONE (23:00)
[2022-01-29] MEDS ORDERED: cloNIDine 0.1 mg tablet PO ONE (01:05)
[2022-01-29] MEDS ORDERED: oxyCODONE/APAP 10/325mg tablet PO ONE (01:10)
[2022-01-29 02:56] VITALS: BP 183/100
== END 2022-01-29 03:00 | disposition home or self-care (01) ==
LOC: ER 16:34
DX: R22.43 Localized swelling, mass and lump, lower limb, bilateral (principal); E86.0 Dehydration; R00.2 Palpitations; I10 Essential (primary) hypertension
CPT/HCPCS: 36415; 71045; 80053; 83880; 84484; 85025; 93005; 99285

== ENCOUNTER 2022-02-01 09:57 | Emergency (ER) | payer MEDICARE, OTHER ==
[~2022-02-01] VITALS: Ht 162.6 cm; Wt 8.9 kg
[2022-02-01 10:14] VITALS: BP 221/103
[2022-02-01 10:37] LABS: BASOPHILS % (AUTO) 0.2 % (0-1); EOSINOPHILS # (AUTO) 0.1 X10'3 (0-0.9); EOSINOPHILS % (AUTO) 1.5 % (0-6); HEMATOCRIT 43.3 % (35.0-45.0); HEMOGLOBIN 14.4 g/dl (12.0-16.0); LYMPHOCYTES # (AUTO) 1.7 X10'3 (1.1-4.8); LYMPHOCYTES % (AUTO) 24.4 % (21-51); MEAN CORPUSCULAR HEMOGLOBIN 29.7 PG (27.0-31.0); MEAN CORPUSCULAR HGB CONC 33.3 g/dL (33.0-36.5); MEAN CORPUSCULAR VOLUME 89.4 FL (78-98); MEAN PLATELET VOLUME 7.7 FL (7.4-10.4); MONOCYTES # (AUTO) 0.4 X10'3 (0-0.9); MONOCYTES % (AUTO) 6.1 % (2-12); NEUTROPHILS # (AUTO) 4.6 X10'3 (1.8-7.7); NEUTROPHILS % (AUTO) 67.8 % (42-75); PLATELET COUNT 266 X10'3 (140-440); RED BLOOD COUNT 4.84 X10'6 (4.20-5.60); WHITE BLOOD COUNT 6.8 X10'3 (4.5-11.0)
[2022-02-01 10:52] LABS: ALANINE AMINOTRANSFERASE 22 U/L (12-78); ALBUMIN 3.9 G/DL (3.4-5.0); ALKALINE PHOSPHATASE 116 IU/L (46-116); ANION GAP 11 (8-16); ASPARTATE AMINO TRANSFERASE 17 U/L (10-37); BILIRUBIN,TOTAL 1.3 MG/DL (0.1-1.0); BLOOD UREA NITROGEN 11 MG/DL (7-18); BUN/CREATININE RATIO 10.6 (6.6-38.0); CALCIUM 9.3 MG/DL (8.5-10.1); CHLORIDE 96 MMOL/L (99-107); CREATININE 1.04 MG/DL (0.40-0.90); GLUCOSE 141 MG/DL (70-104); POTASSIUM 3.3 MMOL/L (3.5-5.1); SODIUM 137 MMOL/L (135-145); TOTAL CARBON DIOXIDE 30.2 MMOL/L (24-32); eGFR 53 ML/MIN
== END 2022-02-01 15:57 | disposition left against medical advice (07) ==
LOC: ER 09:58
DX: R07.89 Other chest pain (principal); Z53.21 Procedure and treatment not carried out due to patient leaving prior to being seen by health care provider
CPT/HCPCS: 36415; 71045; 80053; 83880; 84484; 85025; 93005